=== PATIENT | male | born 1985 | race Caucasian/White ===

== ENCOUNTER 2021-05-13 13:39 | Outpatient (CLI) | payer MEDICAID | END 2021-05-13 13:40 | disposition critical access hospital (66) | LOC: EMS 13:39 | DX: F11.23 Opioid dependence with withdrawal (principal) | CPT/HCPCS: A0425; A0429; A0999 ==

== ENCOUNTER 2021-05-13 14:05 | Emergency (ER) | payer MEDICAID ==
[2021-05-13 14:32] VITALS: BP 158/91
== END 2021-05-13 16:55 | disposition left against medical advice (07) ==
LOC: ED 14:05
DX: Z53.21 Procedure and treatment not carried out due to patient leaving prior to being seen by health care provider (principal)